=== PATIENT | female | born 1950 | race Caucasian/White ===

== ENCOUNTER 2016-06-26 12:46 | Emergency (ER) | payer MEDICARE, OTHER ==
[2016-06-26] MEDS ORDERED: LORazepam 0.5 MG TABLET PO STA (13:50)
[2016-06-26] MEDS ORDERED: LORazepam 0.5 MG TABLET ONE (13:53)
== END 2016-06-26 15:00 | disposition home or self-care (01) ==
DX: R07.89 Other chest pain (principal); I10 Essential (primary) hypertension; I49.3 Ventricular premature depolarization; I48.91 Unspecified atrial fibrillation; Z79.899 Other long term (current) drug therapy
CPT/HCPCS: 36415; 71020; 80053; 83690; 83735; 84484; 85025; 93005; 93010; 99283; 99284; A9270

== ENCOUNTER 2022-10-13 15:46 | Outpatient (CLI) | payer OTHER ==
[2022-10-13 16:17] LABS: ALBUMIN 3.8 g/dL (3.2-5.5); BILIRUBIN,DIRECT 0.2 mg/dL (0.1-0.5); BILIRUBIN,TOTAL 1.2 mg/dL (0.2-1.0); TOTAL PROTEIN 6.5 g/dL (6.7-8.2)
== END 2022-10-13 15:47 | disposition home or self-care (01) ==
LOC: RT 15:46
PROVIDERS: ATTEND Internal Medicine Cardiovascular Disease
DX: I48.91 Unspecified atrial fibrillation (principal); Z51.81 Encounter for therapeutic drug level monitoring; Z79.899 Other long term (current) drug therapy
CPT/HCPCS: 36415; 80076; 94010; 94727; 94729

== ENCOUNTER 2023-11-10 22:44 | Observation (INO) | payer MEDICARE, OTHER ==
[2023-11-10] MEDS ORDERED: EPINEPHrine ABBOJECT 1 MG/10 ML SYRINGE IM STA (23:14)
[2023-11-10] MEDS ORDERED: TRANEXAMIC ACID 1,000 MG/10 ML VIAL ONE (23:24)
[2023-11-10] MEDS: FAMOTIDINE 20 MG/2 ML VIAL IVP STA (23:27)
[2023-11-10] MEDS: methylPREDNISolone SUCCINATE 125 MG/2 ML VIAL IVP STA (23:27)
[2023-11-10] MEDS: LORazepam 2 MG/ML VIAL IVP STA (23:27)
[2023-11-10 23:29] LABS: BASOPHILS % (AUTO) 0.4 %; EOSINOPHILS # (AUTO) 0.1 10^3/uL (0.0-0.7); EOSINOPHILS % (AUTO) 1.4 %; HCT - HEMATOCRIT 38.9 % (37.0-47.0); HGB - HEMOGLOBIN 12.5 g/dL (12.0-16.0); LYMPHOCYTES % (AUTO) 19.8 %; MEAN CORPUSCULAR HEMOGLOBIN 28.9 pg (27.0-31.0); MEAN CORPUSCULAR HGB CONC 32.1 g/dL (32.0-36.0); MEAN CORPUSCULAR VOLUME 89.8 fL (81.0-99.0); MEAN PLATELET VOLUME 9.1 fL (7.9-10.8); MONOCYTES # (AUTO) 0.3 10^3/uL (0.0-1.0); MONOCYTES % (AUTO) 6.2 %; NEUTROPHILS # (AUTO) 3.7 10^3/uL (1.5-6.6); NEUTROPHILS % (AUTO) 71.6 %; PLT - PLATELET COUNT 172 10^3/uL (130-450); RED BLOOD COUNT 4.33 10^6/uL (4.20-5.40); RED CELL DISTRIBUTION WIDTH 12.7 % (12.0-15.0); WHITE BLOOD COUNT 5.1 x10^3/uL (4.8-10.8)
[2023-11-10] MEDS: diphenhydrAMINE INJ 50 MG/ML VIAL IVP STA (23:29)
--- NOTE | 2023-11-10 23:29 | ED Physician Documentation ---
History of Present Illness - Stated complaint Stated Complaint: FACE SWELLING - Chief complaint Chief Complaint: Allergic Rx - History obtained from History obtained from: Patient - Additonal information Additional information: 73-year-old woman without known food allergies presents after eating peanuts and going out to eat [place] food tonight then sustaining swelling to lips and tongue as well as itching sensation in throat starting around 8 PM tonight. Patient took [id number] antiallergy medication again to Claritin but then came into the ED due to persistence of symptoms. She has been on lisinopril for 20 years and had adjustment in her medication back in July. PD PAST MEDICAL HISTORY - Past Medical History Past Medical History: Yes Cardiovascular: Hypertension, High cholesterol, Atrial fibrillation Endocrine/Autoimmune: HyPOthyroidism Other Past Medical History: Defibrillator - Past Surgical History Past Surgical History: Yes - Present Medications Home Medications: Ambulatory Orders Medication Instructions Recorded Confirmed Amiodarone [Pacerone] 11/16/13 11/16/13 Ezetimibe [Zetia] 11/16/13 11/16/13 Felodipine [Felodipine ER] 11/16/13 11/16/13 Levothyroxine [Synthroid] 50 mcg 11/16/13 11/16/13 Sulfamethoxazole/Trimethoprim 1 each PO BID #14 tablet 11/16/13 [Sulfamethoxazole-Tmp Ds Tablet] atenoloL [Atenolol] 11/16/13 11/16/13 Lorazepam [Ativan] 1 mg PO TID PRN #15 tablet 06/26/16 hydroCHLOROthiazide 12.5 mg PO DAILY #30 tablet 06/26/16 [Hydrochlorothiazide] - Allergies Allergies/Adverse Reactions: Allergies Allergy/AdvReac Type Severity Reaction Status Date / Time Cfnpell-ZRS-KxS Reductase Allergy Unknown Verified 11/10/23 22:57 Inhibitor epinephrine AdvReac Mild Unknown Verified 11/10/23 23:44 - Social History Does the pt smoke?: No Smoking Status: Never smoker Does the pt drink ETOH?: No Does the pt have substance abuse?: No - Immunizations Immunizations are current?: Yes - POLST Patient has POLST: No PD ED PE NORMAL - Vitals Vital signs reviewed: Yes - General General: Alert and oriented X 3, No acute distress, Well developed/nourished - HEENT HEENT: Atraumatic, PERRL, EOMI, Moist mucous membranes, Other (Upper and lower lip swelling and significant tongue swelling. good airflow on auscultation of upper airways) - Neck Neck: Supple, no meningeal sign - Cardiac Cardiac: RRR - Respiratory Respiratory: No respiratory distress, Clear bilaterally - Abdomen Abdomen: Non tender, Non distended - Back Back: No CVA TTP - Derm Derm: Normal color, Warm and dry, No rash - Extremities Extremities: No deformity - Neuro Neuro: No motor deficit, No sensory deficit - Psych Psych: Normal mood, Normal affect Results - Vitals Vitals: Vital Signs - 24 hr 11/10/23 11/10/23 22:50 23:07 Temperature 36.8 C Heart Rate 65 65 Respiratory 18 14 Rate Blood Pressure 177/78 H 181/90 H O2 Saturation 99 97 Oxygen O2 Source Room air - Labs Labs: Laboratory Tests 11/10/23 11/10/23 23:20 23:20 WBC 5.1 RBC 4.33 Hgb 12.5 Hct 38.9 MCV 89.8 MCH 28.9 MCHC 32.1 RDW 12.7 Plt Count 172 MPV 9.1 Neut # (Auto) 3.7 Lymph # (Auto) 1.[address] [place] # (Auto) 0.3 Eos # (Auto) 0.1 Baso # (Auto) 0.0 Absolute Nucleated RBC 0.00 Nucleated RBC % 0.0 Sodium 140 Potassium 4.1 Chloride 105 Carbon Dioxide 29 Anion Gap 6.0 BUN 18 Creatinine 0.9 Estimated GFR (MDRD) 61 L Glucose 124 H Calcium 9.7 Total Bilirubin 1.0 AST 16 ALT 12 Alkaline Phosphatase 62 Total Protein 6.8 Albumin 4.0 Globulin 2.8 Albumin/Globulin Ratio 1.4 Lipase 30 PD Medical Decision Making - ED course ED course: 73yF presents with likely cathryn inhibitor induced angioedema vs anaphylaxis. plan to treat appropriately with IV anaphylaxis medications as well as txa for potential treatment of angioedema. Patient voiced concerns about medication interactions with her heart meds. d/w guard driver precision devices inspector/tester for Dr. Navin Portillo, patient's guard driver. He recommends all appropriate treatment for anaphylaxis as needed. Patient was then agreeable to treatment. Plan to admit for monitoring overnight. Departure - Departure Disposition: ED Place in Observation Clinical Impression: Angioedema Condition: Stable Forms: PCP List
[2023-11-10] MEDS: TRANEXAMIC ACID 1,000 MG in SODIUM CHLORIDE 0.9% 100ML 100 ML IV STA (23:35)
[2023-11-10 23:42] LABS: ALBUMIN/GLOBULIN RATIO 1.4 (1.0-2.2); CALCIUM 9.7 mg/dL (8.5-10.3); CREATININE 0.9 mg/dL (0.6-1.3); POTASSIUM 4.1 mmol/L (3.5-4.5); TOTAL PROTEIN 6.8 g/dL (6.4-8.9)
[2023-11-11] MEDS: EPINEPHrine 1 MG/ML AMP IM STA (00:03)
[2023-11-11] MEDS ORDERED: SODIUM CHLORIDE FLUSH 0.9% 10 ML SYRINGE IVP PRN (01:14)
[2023-11-11] MEDS ORDERED: MORPHINE 2 MG/ML CARPUJECT IVP PRN (01:14)
[2023-11-11] MEDS ORDERED: ACETAMINOPHEN 1,000 MG/100 ML 1,000 MG/100 ML BAG IV PRN (01:22)
[2023-11-11] MEDS: SODIUM CHLORIDE 0.9% 1,000 ML IV SCH (01:29)
--- NOTE | 2023-11-11 02:04 | HISTORY & PHYSICAL EXAMINATION ---
Chief Complaint - Chief Complaint Chief Complaint: facial swelling History of Present Illness - Admitted From Admitted From:: home - History Obtained From History obtained from: ED physician, - History of Present Illness HPI Comment/Other: is a pleasant 73yo F with history of hypertension and afib. she presented to the ED for evaluation of facial swelling that started acutely on the evening of presentation. Patient had finished dinner at a local [employer] estaurant, she had a dish similar to one that she had in the past. about an hour later, around 8pm she noted tingling around her lips and throat. this progressed to lip swelling. she denies a history of food allergies. She reports that she is on cardiac medication and was recently started on sotolol in july. she also takes Lisinopril,but explained that she has been on her current dose for the pas t 20 years. In the ED she received IV benadryl, solumedrol, pepcid, and TXA. She also received a dose of epinephrine. She had a positive response to treatment with signs of regression of her swelling. She maintained a patent airway and secretion management, therefore she was not intubated in the ED. I performed this visit using telehealth tools, including live video. I obtained patient's consent to perform this visit using telemedicine modalities. her was at bedside and assistd with history. Due to her cardiac history, it was requested that her primary utility sales and service manager be informed and contacted before discharge or discontinuation of any medications. Dr. Navin Portillo, [phone]. History - Past Medical History Cardiovascular: reports: Hypertension, High cholesterol, Atrial fibrillation Endocrine/Autoimmune: reports: HyPOthyroidism MRSA Hx?: No Other Past Medical History: Defibrillator - POLST Patient has POLST: No Meds/Allgy - Home Medications Home Medications: Ambulatory Orders Medication Instructions Recorded Confirmed Amiodarone [Pacerone] 11/16/13 11/16/13 Ezetimibe [Zetia] 11/16/13 11/16/13 Felodipine [Felodipine ER] 11/16/13 11/16/13 Levothyroxine [Synthroid] 50 mcg 11/16/13 11/16/13 Sulfamethoxazole/Trimethoprim 1 each PO BID #14 tablet 11/16/13 [Sulfamethoxazole-Tmp Ds Tablet] atenoloL [Atenolol] 11/16/13 11/16/13 Lorazepam [Ativan] 1 mg PO TID PRN #15 tablet 06/26/16 hydroCHLOROthiazide 12.5 mg PO DAILY #30 tablet 06/26/16 [Hydrochlorothiazide] - Allergies Allergies/Adverse Reactions: Allergies Allergy/AdvReac Type Severity Reaction Status Date / Time Mfrnahu-DNJ-AoT Reductase Allergy Unknown Verified 11/10/23 22:57 Inhibitor epinephrine AdvReac Mild Unknown Verified 11/10/23 23:44 Review of Systems - All Other Systems All Other Systems: reports: Reviewed and negative Exam - Vital Signs Reviewed Vital Signs: Yes Vital Signs: Vital Signs x48h Temp Pulse Resp BP Pulse Ox 11/11/23 01:00 68 18 139/70 H 18 L 11/11/23 00:30 70 20 95 11/11/23 00:28 70 14 188/103 H 99 11/10/23 23:40 67 16 184/99 H 99 11/10/23 23:07 65 14 181/90 H 97 11/10/23 22:50 36.8 C 65 18 177/78 H 99 - Physical Exam General Appearance: positive: No acute distress, Alert, Lethargic ENT: positive: Pharyngeal erythema, Other (swelling of lips and face) Respiratory: positive: Chest non-tender, No respiratory distress, Breath sounds nml Cardiovascular: positive: Regular rate & rhythm, No murmur, No gallop Neurologic/Psychiatric: positive: Oriented x3, Mood/affect nml Conclusion/Plan - Problem List (1) Angioedema Conclusion/Plan: Etiology unclear: acute food or drug anaphylaxis can not be excluded. -lisinopril induced angioedema can not be excluded -close monitoring with serial vitals and continuous telemetry, pulse oximetry -maintain nothing by mouth, after 6-12hr of observation can advance diet as tolerated -continue with scheduled solumedrol 40mg BID, monitor BP and blood glucose for adverse affects -continue with pepcid 20mg BId and Benadryl HS IV, transition to oral as tolerated -hold lisinopril, discuss with patient's primary utility sales and service manager prior to discharge upon request of patient (2) Atrial fibrillation Conclusion/Plan: Rate controlled, continue to monitor on telemetry. -resume oral sotolol as tolerated -prn IV beta cony while NPO (3) Hypertension Conclusion/Plan: Reviewed home regimen, will resume as tolerated with the exception of lisipril -primary utility sales and service manager to be updated and any adjustments to medications Qualifiers: Hypertension type: essential hypertension Qualified Code(s): I10 - Essential (primary) hypertension - Lab Results Fish Bones: 11/10/23 23:20 11/10/23 23:20 Core Measures - Anticipated LOS I expect patient to be DC'd or transferred within 96 hours.: Yes - DVT/VTE - Prophylaxis VTE/DVT Device ordered at admit?: Yes Telemedicine Consult Details - Provider Location & Consult Time Telemedicine consultation conducted via videoconferencing?: Yes
[2023-11-11] MEDS: SODIUM CHLORIDE FLUSH 0.9% 10 ML SYRINGE IVP SCH (09:00)
[2023-11-11] MEDS: FAMOTIDINE 20 MG/2 ML VIAL IVP SCH (09:00)
--- NOTE | 2023-11-11 10:26 | Discharge Plan ---
Discharge Plan Problem Reviewed?: Yes Disposition: Home, Self Care Condition: Stable Diet: Regular Activity Restrictions: Activity as Tolerated Shower Restrictions: No Driving Restrictions: No Instruction Topics: Factor XII, C1 inhibitor Human injection [angioedema treatment], Urticaria Angioedema Health Concerns: You are a patient who has a history of high blood pressure and have to take quite a bit of medication. You are under the care of primary care provider and cardiology back in your home state of [place]. You [place] [employer] [place] developed numbness and tingling of your mouth. Lips. This progressed to kaye edema of your face. You came to the emergency room and you were diagnosed with angioneurotic edema. You also take lisinopril as one of your medications. Lisinopril is 1 of those medications it is associated with angioedema. You could have been taking it for 1 day, 1 year or 20 years. Even if you stop lisinopril you can sometimes get angioedema up to 9 months after. I have spoken to your cardiology office. They do not recommend stopping the l isinopril yet. But they would like to see you in a visit next week. [place] You will set up a telehealth visit. Plan of Treatment: 1. Resume your medications as usual 2. Please keep a telehealth visit appointment with your cardiology office 3. Return to the emergency room if you develop recurrent swelling of your tongue, and lips. Care Goals: To not have recurrence of this angioedema Assessment: she is accompanied by her . She is alert and oriented to person, place, time and situation. No Smoking: If you smoke, Please STOP! Call for help.
--- NOTE | 2023-11-11 10:55 | DISCHARGE SUMMARY ---
Discharge Summary Admit Date: 11/11/23 Discharge Date: 11/11/23 Discharging Provider: Crys Tyler MD Primary Care Provider: Navin Portillo MD [phone] Code Status: Attempt Resuscitation Condition at Discharge: Stable Discharge Disposition: 01 Home, Self Care - DIAGNOSES Discharge Diagnoses with Status of Each Condition: 1. Angioedema reaction 2. Use of DELMIS inhibitor 3. Difficult to control hypertension 4. History of AICD placement - HPI History of Present Illness: is a pleasant 73yo F with history of hypertension and afib. she presented to the ED for evaluation of facial swelling that started acutely on the evening of presentation. Patient had finished dinner at a local [place] restaurant, she had a dish similar to one that she had in the past. about an hour later, around 8pm she noted tingling around her lips and throat. this progressed to lip swelling. she denies a history of food allergies. She reports that she is on cardiac medication and was recently started on sotolol in july. she also takes Lisinopril,but explained that she has been on her current dose for the past 20 years. In the ED she received IV benadryl, solumedrol, pepcid, and TXA. She also received a dose of epinephrine. She had a positive response to treatment with signs of regression of her swelling. She maintained a patent airway and secretion management, therefore she was not intubated in the ED. I performed this visit using telehealth tools, including live video. I obtained patient's consent to perform this visit using telemedicine modalities. her was at bedside and assistd with history. Due to her cardiac history, it was requested that her primary volunteer services supervisor be informed and contacted before discharge or discontinuation of any medications. Dr. Navin Portillo, [phone]. - Past Medical History Cardiovascular: reports: Hypertension, High cholesterol, Atrial fibrillation Endocrine/Autoimmune: reports: HyPOthyroidism MRSA Hx?: No Other Past Medical History: Defibrillator - HOSPITAL COURSE Hospital Course: the patient received treatment as if she were having a true allergic reaction that was IgE mediated in the emergency room. As such she received steroids. She improved with that and was placed in observation status. Overnight she did not need any further medication. On the morning of discharge, she still had mild lip edema, and was very fatigued but no shortness of breath, no airway obstruction. I explained to the patient and her that this may be angioneurotic edema from DELMIS inhibitors. This was not necessarily an allergic reaction to [place] food. I explained that you could be on an DELMIS inhibitor 1 day, 1 year, or 20 years and have a reaction. And even if you stopped the DELMIS inhibitor, you could have a reaction within a year of stopping the medication. That this was not a true allergic reaction but a different type of reaction. I was able to speak to her cardiology office. She [facility] her [facility] and [facility]. All of her care is usually through [facility]. Dr. Navin Portillo, is her Furniture Mover Helper and she asked me to call him. The volunteer services supervisor on-call, Dr. Vu, suggested to keep her on the lisinopril and they would do a telehealth visit with her in the next week. However, the patient called her primary care provider, who requested the patient stop the lisinopril. And increase the Norvasc for her hypertension. The patient will do that. At discharge the patient is alert, oriented to person place and time. Walking in the hallways. No respiratory distress. Temperature is 36.6. Heart rate 65. Blood pressure 134/78. Respirations 16. 99% on room air. Left foot 6 inches tall, 78.5 kg. She still has mild edema of the upper lip. Nasolabial folds. And periorbital folds. But no stridor. Wheezing. Respiratory distress. Lungs are clear. Regular rate and rhythm. Abdomen is soft, nontender. Extremities without edema. She was able to eat her breakfast and swallow without any difficulty. She will follow-up with her primary care provider for her blood pressure since medicines are being changed. I have asked her to return to the emergency room if she has recurrence of her lip swelling, mouth swelling or tongue swelling. This document was made in part using voice recognition software. While efforts are made to proofread this document, sound alike and grammatical errors may occur. - ALLERGIES Allergies/Adverse Reactions: Allergies Allergy/AdvReac Type Severity Reaction Status Date / Time Hndcnvj-NZZ-EeE Reductase Allergy Unknown Verified 11/10/23 22:57 Inhibitor epinephrine AdvReac Mild Unknown Verified 11/10/23 23:44 - MEDICATIONS Home Medications: Ambulatory Orders Medication Instructions Recorded Confirmed Amiodarone [Pacerone] 11/16/13 11/16/13 Ezetimibe [Zetia] 11/16/13 11/16/13 Felodipine [Felodipine ER] 11/16/13 11/16/13 Levothyroxine [Synthroid] 50 mcg 11/16/13 11/16/13 Sulfamethoxazole/Trimethoprim 1 each PO BID #14 tablet 11/16/13 [Sulfamethoxazole-Tmp Ds Tablet] atenoloL [Atenolol] 11/16/13 11/16/13 Lorazepam [Ativan] 1 mg PO TID PRN #15 tablet 06/26/16 hydroCHLOROthiazide 12.5 mg PO DAILY #30 tablet 06/26/16 [Hydrochlorothiazide] - LABS Result Diagrams: 11/10/23 23:20 11/10/23 23:20
[2023-11-11 11:06] VITALS: BP 134/78; O2SAT 99
[2023-11-11] MEDS ORDERED: methylPREDNISolone SUCCINATE 40 MG/ML VIAL IVP SCH (21:00)
[2023-11-11] MEDS ORDERED: diphenhydrAMINE INJ 50 MG/ML VIAL IVP SCH (21:00)
== END 2023-11-11 11:20 | disposition home or self-care (01) ==
LOC: ED 22:44 → MS3 11-11 01:14
PROVIDERS: ADMIT Hospitalist; ATTEND Hospitalist
DX: T78.3XXA Angioneurotic edema, initial encounter (principal); I10 Essential (primary) hypertension; E78.00 Pure hypercholesterolemia, unspecified; E03.9 Hypothyroidism, unspecified; I48.91 Unspecified atrial fibrillation; Z79.890 Hormone replacement therapy; Z79.899 Other long term (current) drug therapy; Z88.8 Allergy status to other drugs, medicaments and biological substances; Z95.810 Presence of automatic (implantable) cardiac defibrillator
CPT/HCPCS: 36415; 80053; 83690; 85025; 96365; 96372; 96375; 99284; 99285; G0378; J1200; J2060

== ENCOUNTER 2023-11-12 15:11 | Emergency (ER) | payer MEDICARE ==
[2023-11-12 15:34] VITALS: O2SAT 99
[2023-11-12 15:54] LABS: BASOPHILS % (AUTO) 0.2 %; EOSINOPHILS # (AUTO) 0.1 10^3/uL (0.0-0.7); EOSINOPHILS % (AUTO) 1.2 %; HCT - HEMATOCRIT 39.8 % (37.0-47.0); HGB - HEMOGLOBIN 12.8 g/dL (12.0-16.0); LYMPHOCYTES # (AUTO) 1.6 10^3/uL (1.5-3.5); LYMPHOCYTES % (AUTO) 16.4 %; MEAN CORPUSCULAR HEMOGLOBIN 29.2 pg (27.0-31.0); MEAN CORPUSCULAR HGB CONC 32.2 g/dL (32.0-36.0); MEAN CORPUSCULAR VOLUME 90.9 fL (81.0-99.0); MEAN PLATELET VOLUME 8.8 fL (7.9-10.8); MONOCYTES # (AUTO) 0.6 10^3/uL (0.0-1.0); MONOCYTES % (AUTO) 6.4 %; NEUTROPHILS # (AUTO) 7.1 10^3/uL (1.5-6.6); NEUTROPHILS % (AUTO) 74.9 %; PLT - PLATELET COUNT 209 10^3/uL (130-450); RED BLOOD COUNT 4.38 10^6/uL (4.20-5.40); RED CELL DISTRIBUTION WIDTH 12.8 % (12.0-15.0); WHITE BLOOD COUNT 9.5 x10^3/uL (4.8-10.8)
[2023-11-12] MEDS: DEXAMETHASONE 10 MG/ML VIAL IVP STA (15:54)
[2023-11-12] MEDS: EPINEPHrine 1 MG/ML AMP IM STA (15:56)
[2023-11-12] MEDS: TRANEXAMIC ACID 1,000 MG in SODIUM CHLORIDE 0.9% 100ML 100 ML IV STA (15:59)
--- NOTE | 2023-11-12 16:05 | ED Physician Documentation ---
History of Present Illness - Stated complaint Stated Complaint: ALLERGIC RX - Chief complaint Chief Complaint: Allergic Rx - History obtained from History obtained from: Patient, Family - History of Present Illness Timing: Today Pain level max: 0 Pain level now: 0 - Additonal information Additional information: 73-year-old female, history of hypertension, atrial fibrillation, presents with angioedema. Unclear if this was secondary to her lisinopril or her potential food allergy. She states that she does not have a history of food allergies, but did eat peanut butter today and felt like her symptoms began to recur. She was discharged from the hospital yesterday, had not had any recurrent symptoms until today. She states that she felt like her lip was starting to swell again today and that her tongue was mildly swollen. She is not currently on her lisinopril. Review of Systems Constitutional: denies: Fever, Chills Respiratory: denies: Cough GI: denies: Nausea, Diarrhea : denies: Dysuria Skin: denies: Rash Musculoskeletal: denies: Neck pain, Back pain Neurologic: denies: Headache PD PAST MEDICAL HISTORY - Past Medical History Past Medical History: Yes Cardiovascular: Hypertension, High cholesterol, Atrial fibrillation Respiratory: Sleep apnea, CPAP use Neuro: Other Endocrine/Autoimmune: HyPOthyroidism GI: GERD : None Psych: None Musculoskeletal: None Derm: None - Past Surgical History Past Surgical History: Yes Cardiovascular: Pacemaker - Present Medications Home Medications: Ambulatory Orders Medication Instructions Recorded Confirmed Amiodarone [Pacerone] 11/16/13 11/16/13 Ezetimibe [Zetia] 11/16/13 11/16/13 Felodipine [Felodipine ER] 11/16/13 11/16/13 Levothyroxine [Synthroid] 50 mcg 11/16/13 11/16/13 Sulfamethoxazole/Trimethoprim 1 each PO BID #14 tablet 11/16/13 [Sulfamethoxazole-Tmp Ds Tablet] atenoloL [Atenolol] 11/16/13 11/16/13 Lorazepam [Ativan] 1 mg PO TID PRN #15 tablet 06/26/16 hydroCHLOROthiazide 12.5 mg PO DAILY #30 tablet 06/26/16 [Hydrochlorothiazide] EPINEPHrine [Epinephrine] 0.3 mg IJ ONCE PRN #1 each 11/12/23 predniSONE [Deltasone] 10 mg PO [id number] #42 tab 11/12/23 - Allergies Allergies/Adverse Reactions: Allergies Allergy/AdvReac Type Severity Reaction Status Date / Time Akafviy-BAX-MeR Reductase Allergy Unknown Verified 11/12/23 15:18 Inhibitor epinephrine AdvReac Mild Unknown Verified 11/12/23 15:18 - Social History Does the pt smoke?: No Smoking Status: Never smoker Does the pt drink ETOH?: No Does the pt have substance abuse?: No - Immunizations Immunizations are current?: Yes - POLST Patient has POLST: No PD ED PE NORMAL - Vitals Vital signs reviewed: Yes - General General: Alert and oriented X 3, No acute distress - HEENT HEENT: PERRL, Moist mucous membranes, Other (Mild angioedema, mild tongue swelling. Normal phonation. No trismus. No stridor. No wheezing) - Neck Neck: Supple, no meningeal sign - Cardiac Cardiac: RRR, Strong equal pulses - Respiratory Respiratory: No respiratory distress, Clear bilaterally - Abdomen Abdomen: Soft, Non tender, Non distended - Derm Derm: Warm and dry, No rash - Extremities Extremities: No edema - Neuro Neuro: Alert and oriented X 3 - Psych Psych: Normal mood, Normal affect Results - Vitals Vitals: Vital Signs - 24 hr 11/12/23 11/12/23 15:18 17:54 Temperature 36.7 C 36.7 C Heart Rate 65 66 Respiratory 18 16 Rate Blood Pressure 149/94 H 153/81 H O2 Saturation 99 99 Oxygen O2 Source Room air - Labs Labs: Laboratory Tests 11/12/23 11/12/23 15:46 15:46 WBC 9.5 RBC 4.38 Hgb 12.8 Hct 39.8 MCV 90.9 MCH 29.2 MCHC 32.2 RDW 12.8 Plt Count 209 MPV 8.8 Neut # (Auto) 7.1 H Lymph # (Auto) 1.6 [place] # (Auto) 0.6 Eos # (Auto) 0.1 Baso # (Auto) 0.0 Absolute Nucleated RBC 0.00 Nucleated RBC % 0.0 Sodium 140 Potassium 3.6 Chloride 104 Carbon Dioxide 31 Anion Gap 5.0 L BUN 19 Creatinine 0.7 Estimated GFR (MDRD) 82 L Glucose 112 H Calcium 9.8 Total Bilirubin 0.8 AST 20 ALT 14 Alkaline Phosphatase 64 Total Protein 7.2 Albumin 4.5 Globulin 2.7 Albumin/Globulin Ratio 1.7 Lipase 29 PD Medical Decision Making - ED course Complexity details: reviewed results, re-evaluated patient, considered differential, d/w patient ED course: Patient was given epinephrine, tranexamic acid and dexamethasone. Observed for several hours in the emergency department. Symptoms resolved. Normal phonation. No trismus. No evidence of anaphylaxis. Appears to be likely recurrent angioedema from her lisinopril. She is currently asymptomatic. Will place on steroids for the next several days. Epinephrine pen written for home. Patient counseled regarding signs and symptoms for which I believe and urgent re-evaluation would be necessary. Patient with good understanding of and agreement to plan and is comfortable going home at this time This document was made in part using voice recognition software. While efforts are made to proofread this document, sound alike and grammatical errors may occur. Departure - Departure Disposition: 01 Home, Self Care Clinical Impression: Angioedema Qualifiers: Encounter type: initial encounter Qualified Code(s): T78.3XXA - Angioneurotic edema, initial encounter Condition: Good Instructions: ED Angioedema Follow-Up: your,doctor as needed [Other] Prescriptions: predniSONE [Deltasone] 10 mg PO [id number] #42 tab EPINEPHrine [Epinephrine] 0.3 mg IJ ONCE PRN #1 each PRN Reason: Anaphylaxis Comments: Your prescriptions were [facility] in [place]. Please follow-up with your doctor as needed for any further care. Please do not take any further lisinopril. Please return if you worsen. If you use the epinephrine pen, you will still need to be seen right away in the emergency department. Forms: PCP List Discharge Date/Time: 11/12/23 17:54
[2023-11-12 16:07] LABS: ALBUMIN 4.5 g/dL (3.2-5.5); ALBUMIN/GLOBULIN RATIO 1.7 (1.0-2.2); BILIRUBIN,TOTAL 0.8 mg/dL (0.2-1.0); CALCIUM 9.8 mg/dL (8.5-10.3); CREATININE 0.7 mg/dL (0.6-1.3); POTASSIUM 3.6 mmol/L (3.5-4.5); TOTAL PROTEIN 7.2 g/dL (6.4-8.9)
[2023-11-12 18:01] VITALS: BP 153/81
== END 2023-11-12 17:54 | disposition home or self-care (01) ==
LOC: ED 15:11
DX: T78.3XXA Angioneurotic edema, initial encounter (principal); T78.40XA Allergy, unspecified, initial encounter; I10 Essential (primary) hypertension
CPT/HCPCS: 36415; 80053; 83690; 85025; 96365; 96375; 99283

== ENCOUNTER 2023-11-22 20:12 | Emergency (ER) | payer MEDICARE ==
--- NOTE | 2023-11-22 20:41 | ED Physician Documentation ---
History of Present Illness - Stated complaint Stated Complaint: MOUTH NUMBNESS - Chief complaint Chief Complaint: Allergic Rx - Additonal information Additional information: 73-year-old female presents emergency department for tongue numbness. She was recently hospitalized For lisinopril reaction. Patient was seen on 12/10 and 12/12 for oral swelling she has stopped taking her lisinopril and was switched to amlodipine she had an allergy test done about a month ago from an block trimmer that was completely negative for all findings of anaphylaxis. Patient says that she did recently eat crab and shrimp tonight but does not have any known allergies to shellfish. Reports Sondra had an [facility] has been following up with them and I did but I did put him in a garage she called her block trimmer who did not advise taking the EpiPen he advised he has he is unable to evaluate her over the phone for her to come to the emergency department for further evaluation. Patient is concerned that her tongue is swollen she is able to speak swallow and breathe without any difficulty she has no rash she has no periorbital swelling PD PAST MEDICAL HISTORY - Past Medical History Past Medical History: Yes Cardiovascular: Hypertension, High cholesterol, Atrial fibrillation Respiratory: Sleep apnea, CPAP use Neuro: Other Endocrine/Autoimmune: HyPOthyroidism GI: GERD : None Psych: None Musculoskeletal: None Derm: None - Past Surgical History Past Surgical History: Yes Cardiovascular: Pacemaker - Present Medications Home Medications: Ambulatory Orders Medication Instructions Recorded Confirmed Amiodarone [Pacerone] 11/16/13 11/16/13 Ezetimibe [Zetia] 11/16/13 11/16/13 Felodipine [Felodipine ER] 11/16/13 11/16/13 Levothyroxine [Synthroid] 50 mcg 11/16/13 11/16/13 Sulfamethoxazole/Trimethoprim 1 each PO BID #14 tablet 11/16/13 [Sulfamethoxazole-Tmp Ds Tablet] atenoloL [Atenolol] 11/16/13 11/16/13 Lorazepam [Ativan] 1 mg PO TID PRN #15 tablet 06/26/16 hydroCHLOROthiazide 12.5 mg PO DAILY #30 tablet 06/26/16 [Hydrochlorothiazide] EPINEPHrine [Epinephrine] 0.3 mg IJ ONCE PRN #1 each 11/12/23 predniSONE [Deltasone] 10 mg PO [id number] #42 tab 11/12/23 dexAMETHasone [Decadron] 4 mg PO DAILY #7 tablet 11/22/23 - Allergies Allergies/Adverse Reactions: Allergies Allergy/AdvReac Type Severity Reaction Status Date / Time lisinopril Allergy Edema Verified 11/22/23 20:28 Zusdczj-SGM-MuC Reductase Allergy Unknown Verified 11/12/23 15:18 Inhibitor epinephrine AdvReac Mild Unknown Verified 11/12/23 15:18 - Social History Does the pt smoke?: No Smoking Status: Never smoker Does the pt drink ETOH?: No Does the pt have substance abuse?: No - Immunizations Immunizations are current?: Yes - POLST Patient has POLST: No PD ED PE NORMAL - Vitals Vital signs reviewed: Yes - General General: Alert and oriented X 3, No acute distress, Well developed/nourished - HEENT HEENT: Atraumatic, PERRL, Moist mucous membranes, Pharynx benign - Neck Neck: C-Spine cleared by NEXUS criteria - Cardiac Cardiac: RRR - Respiratory Respiratory: No respiratory distress, Clear bilaterally - Abdomen Abdomen: Normal bowel sounds, No organomegaly Results - Vitals Vitals: Oxygen O2 Source Room air - Labs Labs: Microbiology 11/22/23 21:28 Group A Strep Throat Culture - Preliminary Throat Laboratory Tests 11/22/23 11/22/23 21:28 21:28 Nasal Influenza B PCR NOT DETECTED Nasal Influenza A PCR NOT DETECTED Nasal RSV (PCR) NOT DETECTED Nasal SARS-CoV-2 (PCR) NOT DETECTED Group A Strep Rapid Negative PD Medical Decision Making - ED course ED course: 73-year-old female presents emergency department for concerns of anaphylaxis due to lisinopril reaction. Patient was hospitalized Recently for lisinopril reaction. Upon discharge from the hospital they did not send her home on any steroids. Patient was willing originally to trial some allergy medication as well as H2 blockers to try and avoid EpiPen. Patient was still complaining of throat swelling and tongue numbness and tingling. Unfortunately due to change of shift again reports Dr. Chen who further took over and manage the patient's care. Departure - Departure Disposition: 01 Home, Self Care Clinical Impression: Angioedema Condition: Good Instructions: ED Angioedema Follow-Up: your,doctor in 1 week [Other] Prescriptions: dexAMETHasone [Decadron] 4 mg PO DAILY #7 tablet Comments: Your prescription was sent to [facility] in [place]. Please follow-up with with your doctor for further care. As we discussed you can take Zyrtec or Claritin daily as well. We will try you on dexamethasone to see if this is less bothersome to you than the prednisone was. Please return immediately if you worsen. Forms: PCP List Discharge Date/Time: 11/22/23 23:49
[2023-11-22] MEDS: FAMOTIDINE 20 MG/2 ML VIAL IVP STA (20:50)
[2023-11-22] MEDS: DEXAMETHASONE 10 MG/ML VIAL IVP STA (20:51)
[2023-11-22] MEDS: CETIRIZINE 10 MG TABLET PO STA (20:51)
[2023-11-22] MEDS: CHERRY SYRUP 10 ML UDC PO ONE (20:51)
[2023-11-22 21:09] VITALS: O2SAT 97
[2023-11-22] MEDS: KETOROLAC 30 MG/ML VIAL IVP STA (21:16)
[2023-11-22] MEDS: ACETAMINOPHEN 325 MG TABLET PO STA (22:01)
[2023-11-22 22:02] LABS: RAPID STREP SCREEN Negative (Negative)
[2023-11-22] MEDS ORDERED: TRANEXAMIC ACID 1,000 MG/10 ML VIAL ONE (22:13)
[2023-11-22] MEDS: TRANEXAMIC ACID 1,000 MG in SODIUM CHLORIDE 0.9% 100ML 100 ML IV STA (22:15)
[2023-11-22 22:35] VITALS: BP 134/74
[2023-11-22 22:45] LABS: INFLUENZA A- RESP PCR PANEL NOT DETECTED; INFLUENZA B - RESP PCR PANEL NOT DETECTED; RSV- RESP PCR PANEL NOT DETECTED; SARS-CoV-2 -RESP PCR PANEL NOT DETECTED
[2023-11-22] MEDS: EPINEPHrine 1 MG/ML AMP IM STA (23:02)
--- NOTE | 2023-11-22 23:31 | ED Physician Documentation ---
ED Addendum - Addendum Addendum: 11/22/23 23:29 Patient was signed out to me by Elliot Novoa, please see her note for full H&P on this patient. 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 She has been off of her lisinopril for the past few weeks. She states she started to feel increased swelling in her throat and itching. She is concerned about a another reaction. No stridor or wheezing. No difficulty speaking or swallowing. She was given tranexamic acid, dexamethasone, epinephrine. Symptoms resolved. She was also given an H2 cony and antihistamine. We will place her on dexamethasone for home. Will have her follow-up with her doctor for further care. No evidence of anaphylaxis. No significant angioedema or evidence of airway compromise. No urticaria. No wheezing or stridor. Patient and family counseled regarding signs and symptoms for which I believe and urgent re-evaluation would be necessary. Patient and family with good understanding of and agreement to plan and is comfortable going home at this time This document was made in part using voice recognition software. While efforts are made to proofread this document, sound alike and grammatical errors may occur. Departure - Departure Disposition: 01 Home, Self Care Clinical Impression: Angioedema Qualifiers: Encounter type: initial encounter Qualified Code(s): T78.3XXA - Angioneurotic edema, initial encounter Condition: Good Instructions: ED Angioedema Follow-Up: your,doctor in 1 week [Other] Prescriptions: dexAMETHasone [Decadron] 4 mg PO DAILY #7 tablet Comments: Your prescription was sent to [facility] in [place]. Please follow-up with with your doctor for further care. As we discussed you can take Zyrtec or Claritin daily as well. We will try you on dexamethasone to see if this is less bothersome to you than the prednisone was. Please return immediately if you worsen. Forms: PCP List
== END 2023-11-22 23:49 | disposition home or self-care (01) ==
LOC: ED 20:12
DX: T78.3XXA Angioneurotic edema, initial encounter (principal); I10 Essential (primary) hypertension; E78.00 Pure hypercholesterolemia, unspecified; I48.91 Unspecified atrial fibrillation; E03.9 Hypothyroidism, unspecified; Z95.0 Presence of cardiac pacemaker; Z79.899 Other long term (current) drug therapy
CPT/HCPCS: 87070; 87430; 87637; 96365; 96372; 96375; 99283; A9270

== ENCOUNTER 2023-12-08 18:33 | Emergency (ER) | payer MEDICARE ==
--- NOTE | 2023-12-08 19:34 | ED Physician Documentation ---
History of Present Illness - Stated complaint Stated Complaint: THROAT PX - Chief complaint Chief Complaint: Heent - History obtained from History obtained from: Patient, Family - Additonal information Additional information: The patient comes to the emergency department chief complaint of discomfort in her throat and tongue that feels like pain and [id number], and complaints that hurts to swallow. She is concerned that this is a recurrence of her angioedema which she had a few weeks ago after being on lisinopril for an extended period of time. The patient has been off lisinopril for nearly a month. She has already seen an water filterer helper with a full battery of allergy tests all of which are negative. She states that she has not had any fevers that she is measured but is having chills. She denies any cough or congestion. No itching or hives. The patient states she is also allergic to statins. The patient denies any exposures that are new or anything else she can think of that might of caused her to have an allergic reaction. She has not had any sick contacts. She is from [place] and is returning next week. The patient has a history of A-fib but states that she is not having any acute issues with this and is scheduled for an ablation when she gets back to [place]. No other complaints at this time. 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 : None HEENT: None Psych: None Musculoskeletal: None Derm: None - Past Surgical History Past Surgical History: Yes Cardiovascular: Pacemaker - Present Medications Home Medications: Ambulatory Orders Medication Instructions Recorded Confirmed Ezetimibe [Zetia] 1 tab PO DAILY 11/16/13 12/08/23 Levothyroxine [Synthroid] 50 mcg PO DAILY 11/16/13 12/08/23 atenoloL [Atenolol] 1 tab PO DAILY 11/16/13 12/08/23 EPINEPHrine [Epinephrine] 0.3 mg IJ ONCE PRN #1 each 11/12/23 12/08/23 ALPRAZolam [Xanax] 0.25 mg PO Q6H PRN #12 tablet 12/08/23 Apixaban [Eliquis] 1 tab PO BID 12/08/23 12/08/23 Ezetimibe [Zetia] 1 tab PO DAILY 12/08/23 12/08/23 Hydralazine HCl 1 tab PO BID 12/08/23 12/08/23 Levocetirizine Dihydrochloride 0.5 tab PO DAILY 12/08/23 12/08/23 Sotalol [Betapace] 1 tab PO DAILY 12/08/23 12/08/23 amLODIPine [Norvasc] 2 tab PO DAILY 12/08/23 12/08/23 dexAMETHasone [Decadron] 8 mg PO BIDWM #12 tablet 12/08/23 - Allergies Allergies/Adverse Reactions: Allergies Allergy/AdvReac Type Severity Reaction Status Date / Time lisinopril Allergy Edema Verified 12/08/23 18:44 Wjnwbrt-TSV-RwM Reductase Allergy Unknown Verified 12/08/23 18:44 Inhibitor epinephrine AdvReac Mild Unknown Verified 12/08/23 18:44 - Social History Does the pt smoke?: No Smoking Status: Never smoker Does the pt drink ETOH?: No Does the pt have substance abuse?: No - Immunizations Immunizations are current?: Yes - POLST Patient has POLST: No PD ED PE NORMAL - Vitals Vital signs reviewed: Yes - General General: Alert and oriented X 3, No acute distress, Well developed/nourished - HEENT HEENT: Atraumatic, PERRL, EOMI, Moist mucous membranes, Pharynx benign (No oropharyngeal edema.), Other (No facial edema. Handling secretions well.) - Neck Neck: Supple, no meningeal sign, No adenopathy, Thyroid normal, Other (No neck masses) - Cardiac Cardiac: RRR, No murmur - Respiratory Respiratory: No respiratory distress, Clear bilaterally, Other (No stridor. Respirations nonlabored.) - Derm Derm: Normal color, Warm and dry, No rash - Extremities Extremities: No deformity, No edema - Neuro Neuro: Other (Alert and grossly intact) - Psych Psych: Normal affect, Other (Mildly anxious otherwise normal mood) Results - Vitals Vitals: Vital Signs - 24 hr 12/08/23 12/08/23 12/08/23 18:35 20:00 22:00 Temperature 36.1 C L Heart Rate 75 91 76 Respiratory 16 16 Rate Blood Pressure 148/78 H 129/107 H 115/68 O2 Saturation 96 98 93 Oxygen O2 Source Room air - Labs Labs: Laboratory Tests 12/08/23 19:37 Nasal Adenovirus (PCR) NOT DETECTED Nasal B. parapertussis DNA (PCR) NOT DETECTED Nasal Coronavir 229E PCR NOT DETECTED Nasal Coronavir HKU1 PCR NOT DETECTED Nasal Coronavir NL63 PCR NOT DETECTED Nasal Coronavir OC43 PCR NOT DETECTED Nasal Enterovir/Rhinovir PCR NOT DETECTED Nasal Influenza B PCR NOT DETECTED Nasal Influenza A PCR NOT DETECTED Nasal Parainfluen 1 PCR NOT DETECTED Nasal Parainfluen 2 PCR NOT DETECTED Nasal Parainfluen 3 PCR NOT DETECTED Nasal Parainfluen 4 PCR NOT DETECTED Nasal RSV (PCR) NOT DETECTED Nasal B.pertussis DNA PCR NOT DETECTED Nasal C.pneumoniae (PCR) NOT DETECTED [place] Metapneumo PCR NOT DETECTED Nasal M.pneumoniae (PCR) NOT DETECTED Nasal SARS-CoV-2 (PCR) NOT DETECTED PD Medical Decision Making - ED course Complexity details: reviewed old records, reviewed results, re-evaluated jc ent, considered differential, d/w patient ED course: I discussed at length with the patient and her that I do not find any evidence of angioedema at this time. Patient has been experiencing symptoms since last night so nearly 24 hours. She has not been on the lisinopril for nearly a month and she has not had any further workup to see if she has some other form of angioedema. She has not been found to have any other allergy that is identifiable and has no distinctly allergic symptoms otherwise. I discussed with the patient that it is possible that she has a viral illness that is causing discomfort in her tongue and throat and the feeling of chills. I ordered her some Decadron to help with her discomfort, as well as Toradol and a very small dose of Dilaudid. The patient declined both the Toradol and the Dilaudid but requested Tylenol and Ativan. After some discussion with the patient who did agree to give her both of these. I have ordered a respiratory PCR panel for the patient. She also requested an x-ray of her right hand because she had hit it on the door frame on her way out. I had examined her hand and found what appeared to be more or less a contusion but the patient was very fixated on this and was becoming increasingly anxious and worried about it and so I did order the x-ray, which was negative. The rest of the patient's workup was also negative. She was feeling much better after the above interventions. I discussed with her that I do not find any evidence of angioedema at this time and that treatment has been will be directed toward her current symptoms. She has extensive follow-up with various specialists coming up and we have discussed symptoms that should in the intervening time prompt her to return to the emergency department. Departure - Departure Disposition: 01 Home, Self Care Clinical Impression: Globus pharyngeus Pharyngitis Qualifiers: Pharyngitis/tonsillitis etiology: unspecified etiology Qualified Code(s): J02.9 - Acute pharyngitis, unspecified Condition: Stable Instructions: Sore Throats Self Care Prescriptions: dexAMETHasone [Decadron] 8 mg PO BIDWM #12 tablet ALPRAZolam [Xanax] 0.25 mg PO Q6H PRN #12 tablet PRN Reason: Anxiety Comments: There is no evidence of angioedema tonight. It is not entirely clear what is causing your discomfort in your throat. It could be that you have a touch of the viral illness that is going around, especially with the chills. Your viral panel was negative for any of the things that we can test for. There is no evidence of a serious injury to your hand, And the pain is most likely secondary to bruising and the tendons moving through the bruised area. Please continue your plans to follow-up with your doctor and other specialists upon your return to [place] and by telemedicine. A prescription for some dexamethasone, as well as an oral medication for anxiety that is in the same family as Ativan, has been electronically transmitted to the [facility] pharmacy in [place], your pharmacy of choice on record. Please pick this up in the morning. You may take [id number] Benadryl if needed if you do feel as though your throat is swelling. If you are having significant trouble breathing, please return to the emergency department immediately. Forms: PCP List Discharge Date/Time: 12/08/23 22:47
[2023-12-08] MEDS: HYDROmorphone 0.5 MG/0.5 ML SYRINGE IVP STA (19:45)
[2023-12-08] MEDS: DEXAMETHASONE 10 MG/ML VIAL IVP STA (19:45)
[2023-12-08] MEDS: KETOROLAC 30 MG/ML VIAL IVP STA (19:45)
[2023-12-08] MEDS: SODIUM CHLORIDE 0.9% 1,000 ML IV STA (19:45)
[2023-12-08] MEDS: LORazepam 2 MG/ML VIAL IVP STA (20:38)
[2023-12-08] MEDS: ACETAMINOPHEN 325 MG TABLET PO STA (20:38)
[2023-12-08 20:44] LABS: B. PARAPERTUSSIS- RESP PCR PAN NOT DETECTED; B. PERTUSSIS- RESP PCR PANEL NOT DETECTED; C. PNEUMONIAE- RESP PCR PANEL NOT DETECTED; CORONAVIRUS 229E-RESP PCR NOT DETECTED; CORONAVIRUS HKU1-RESP PCR NOT DETECTED; CORONAVIRUS NL63-RESP PCR NOT DETECTED; CORONAVIRUS OC43-RESP PCR NOT DETECTED; HUMAN METAPNEUMOVIRUS NOT DETECTED; INFLUENZA A- RESP PCR PANEL NOT DETECTED; INFLUENZA B - RESP PCR PANEL NOT DETECTED; M. PNEUMONIAE- RESP PCR PANEL NOT DETECTED; PARAINFLUENZA VIRUS 1 NOT DETECTED; PARAINFLUENZA VIRUS 2 NOT DETECTED; PARAINFLUENZA VIRUS 3 NOT DETECTED; PARAINFLUENZA VIRUS 4 NOT DETECTED; RHINOVIRUS/ENTEROVIRUS NOT DETECTED; RSV- RESP PCR PANEL NOT DETECTED; SARS-CoV-2 -RESP PCR PANEL NOT DETECTED
--- NOTE | 2023-12-08 22:32 | XRAY Report ---
PROCEDURE: Hand 1-2V RT INDICATIONS: blunt trauma to dorsum, pain TECHNIQUE: 2 views of the hand(s) acquired. COMPARISON: None. FINDINGS: Bones: No fractures or dislocations. 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 No suspici ous bony lesions. Soft tissues: No suspicious soft tissue calcifications or masses. IMPRESSION: No acute bony abnormality. Severe degenerative changes of the hand. Reviewed by: Tyler Arguello MD on 12/08/2023 10:31 PM PDT Approved by: Tyler Arguello MD on 12/08/2023 10:31 PM PDT Station ID: [id number]
[2023-12-08 22:51] VITALS: BP 115/68; O2SAT 93
== END 2023-12-08 22:47 | disposition home or self-care (01) ==
LOC: ED 18:33
DX: J02.9 Acute pharyngitis, unspecified (principal); F45.8 Other somatoform disorders; I10 Essential (primary) hypertension; G47.30 Sleep apnea, unspecified; E03.9 Hypothyroidism, unspecified; I48.91 Unspecified atrial fibrillation; K21.9 Gastro-esophageal reflux disease without esophagitis; Z79.01 Long term (current) use of anticoagulants
CPT/HCPCS: 73120; 87633; 96374; 96375; 99283; A9270; J2060